=== PATIENT | female | born 1985 ===

== ENCOUNTER 2017-03-19 16:34 | Emergency (ER) | payer MEDICAID ==
[2017-03-19 16:35] VITALS: BMI 42.2
[2017-03-19] MEDS ORDERED: Sodium Chloride 0.9% 1,000 ML IV STA (17:34)
--- NOTE | 2017-03-19 17:37 | ED PDOC ---
HPI: Abdomen Time Seen by Provider: 03/19/17 17:12 Chief Complaint (Nursing): GI Problem Chief Complaint (Provider): R pelvic pain History Per: Patient History/Exam Limitations: no limitations Onset/Duration Of Symptoms: Days (2 weeks) Additional Complaint(s): Pt. with R pelvic pain and cramping. Constant. Also decreased appetite. Today had sore throat, but able to swallow with bodyaches, weakness all over. No chest pain, dyspnea, dizziness, headaches, numbness, tingles. No back pain. No leg or arm pain. No dysuria. No vaginal bleeding. Past Medical History Reviewed: Nursing Documentation, Vital Signs Vital Signs: Last Vital Signs Temp 99.1 F 03/19/17 20:45 Pulse 82 03/19/17 17:01 Resp 18 03/19/17 17:01 BP 127/70 03/19/17 17:01 Pulse Ox 99 03/19/17 19:46 - Surgical History Surgical History: Cholecystectomy, - Family History Family History: States: Unknown Family Hx - Social History Alcohol: None Drugs: Denies - Home Medications Home Medications: Ambulatory Orders Medication Instructions Recorded Ferrous Sulfate [Ferrous Sulfate] 325 mg PO BID 01/26/15 Naproxen [Naprosyn] 500 mg PO BID PRN #15 tablet 05/01/16 Dicyclomine [Bentyl] 20 mg PO BID #20 tab 05/05/16 Docusate Sodium [Dulcolax Stool 100 mg PO DAILY PRN #10 capsule 05/05/16 Softener] Famotidine [Pepcid] 20 mg PO DAILY PRN #6 tab 03/19/17 Ibuprofen [Motrin] 600 mg PO TID 7 Days tab 03/19/17 - Allergies Allergies/Adverse Reactions: Allergies Allergy/AdvReac Type Severity Reaction Status Date / Time No Known Allergies Allergy Verified 09/29/14 14:53 Review of Systems ROS Statement: Except As Marked, All Systems Reviewed And Found Negative Constitutional: Positive for: Chills, Weakness ENT: Positive for: Throat Pain Gastrointestinal: Positive for: Abdominal Pain Neurological: Positive for: Weakness Physical Exam - Reviewed Nursing Documentation Reviewed: Yes Vital Signs Reviewed: Yes - Physical Exam Appears: Positive for: Non-toxic, No Acute Distress Head Exam: Positive for: ATRAUMATIC, NORMAL INSPECTION, NORMOCEPHALIC Skin: Positive for: Normal Color, Warm, DRY Eye Exam: Positive for: EOMI, Normal appearance, PERRL ENT: Positive for: Normal ENT Inspection. Negative for: Nasal Congestion, Pharyngeal Erythema, Tonsillar Exudate Neck: Positive for: Normal, Painless ROM, Supple Cardiovascular/Chest: Positive for: Regular Rate, Rhythm Respiratory: Positive for: CNT, Normal Breath Sounds Gastrointestinal/Abdominal: Positive for: Bowel Sounds, Soft, Tenderness (RLQ). Negative for: Guarding Back: Positive for: Normal Inspection. Negative for: L CVA Tenderness, R CVA Tenderness Extremity: Positive for: Normal ROM. Negative for: Tenderness, Pedal Edema Neurologic/Psych: Positive for: Alert, Oriented - Laboratory Results Result Diagrams: 03/19/17 18:05 03/19/17 18:05 Interpretation Of Abn Labs: 16.8 wbc Urine POC: Negative Urine dip results: Negative for: Leukocyte Esterase, Nitrate - ECG O2 Sat by Pulse Oximetry: 99 - CT Scan/US ct and US Other Rad Studies (CT/US): Read By Radiologist Other Rad Interpretation: ovarian cyst small - Progress ED Course And Treament: 2048: Stable. AAOx3. Pain free. Tolerated PO. Fu with pcp. Disposition - Clinical Impression Clinical Impression: Ovarian cyst, Abdominal pain - Patient ED Disposition Is Patient to be Admitted: No Counseled Patient/Family Regarding: Studies Performed, Diagnosis, Need For Followup, Rx Given - Disposition Referrals: [facility] [Outside] - 03/20/17 Disposition: Routine/Home Disposition Time: 21:50 Condition: STABLE Additional Instructions: Return if not better in 3 days. Prescriptions: Famotidine [Pepcid] 20 mg PO DAILY PRN #6 tab PRN Reason: Pain Ibuprofen [Motrin] 600 mg PO TID 7 Days tab Instructions: Acute Abdominal Pain (ED), Ovarian Cyst (ED) Forms: [employer] ([place])
[2017-03-19 18:08] LABS: BASO # 0.1 K/uL (0.0-0.2); BASO % 0.5 % (0.0-2.0); EOS # 0.1 K/uL (0.0-0.7); EOS % 0.9 % (0.0-4.0); HEMATOCRIT 40.9 % (34.0-47.0); LYMPH # 1.5 K/uL (1.0-4.3); MEAN CELL VOLUME 81.5 fl (81.0-99.0); MEAN CORPUSCULAR HEMOGLOBIN 27.2 pg (27.0-31.0); MEAN CORPUSCULAR HGB CONC 33.4 g/dL (33.0-37.0); MEAN PLATELET VOLUME 9.3 fl (7.2-11.7); MONO # 0.9 K/uL (0.0-0.8); MONO % 5.5 % (0.0-10.0); NEUT # 14.1 K/uL (1.8-7.0); NEUT % 84.1 % (50.0-75.0); PLATELET COUNT 220 K/uL (130-400); RED CELL DISTRIBUTION WIDTH 13.1 % (11.5-14.5); WHITE BLOOD COUNT 16.8 K/uL (4.8-10.8)
[2017-03-19 18:23] LABS: BLOOD UREA NITROGEN 9 mg/dl (7-17); CALCIUM 9.1 mg/dL (8.4-10.2); CARBON DIOXIDE 28 mmol/L (22-30); CHLORIDE 101 mmol/L (98-107); GFR AFRICAN-AMERICAN > 60; GLUCOSE,RANDOM 84 mg/dL (65-105); POTASSIUM 3.9 MMOL/L (3.6-5.0); SODIUM 138 mmol/l (132-148)
[2017-03-19] MEDS ORDERED: Iohexol 240 (50 ml) PO ONE (19:44)
[2017-03-19] MEDS ORDERED: Iohexol 240 (50 ml) ONE (19:50)
[2017-03-19 20:09] LABS: EOSINOPHIL 1 % (0-7); NEUTROPHIL 78 % (42-75); TOTAL CELLS COUNTED 100
[2017-03-19] MEDS ORDERED: Iohexol 300 100 ML IJ ONE (21:28)
[2017-03-19] MEDS ORDERED: Sodium Chloride 0.9% 50 ML IV ONE (21:28)
--- NOTE | 2017-03-19 22:44 | CT ---
EXAM: CT Abdomen and Pelvis With Intravenous Contrast CLINICAL HISTORY: 31 years old, female; Pain; Abdominal pain; Localized; Right lower quadrant (rlq); Prior surgery; Surgery date: 6+ months; Surgery type: Gb removed. 3 c-sections. Tubal ligation; Patient HX: Anemia; Additional info: Abd pain. Sent phy. Doc. TECHNIQUE: Axial computed tomography images of the abdomen and pelvis with intravenous contrast. All CT scans at this facility use one or more dose reduction techniques, viz.: automated exposure control; ma/kV adjustment per patient size (including targeted exams where dose is matched to indication; i.e. head); or iterative reconstruction technique. Coronal and sagittal reformatted images were created and reviewed. CONTRAST: 95 mL of [id number] administered intravenously. COMPARISON: PELVIS/TRANSVAG US 2017-03-19 18:33 FINDINGS: Lower thorax: The bilateral lung bases are clear. ABDOMEN: Liver: No acute findings. Gallbladder and bile ducts: The gallbladder is surgically absent. No significant intra- or extrahepatic biliary ductal dilation. Pancreas: Enhances homogeneously. No ductal dilation. No discrete mass. Spleen: No acute findings. Adrenals: No acute findings. Kidneys and ureters: No acute findings. No hydronephrosis or renal calculi. No discrete solid mass. PELVIS: Bladder: No acute findings. Reproductive: Asymmetric enlargement of the right ovary, consistent with patient's ultrasound examination performed earlier on the same day. Appendix: The appendix is of normal caliber (series 602, image 82; series 601, image 55 and series 3, image 139). ABDOMEN and PELVIS: Stomach and bowel: No obstruction. No mucosal thickening. Peritoneum: No significant fluid collection. No free air. Lymph nodes: No pathologically enlarged lymph nodes. Vasculature: Unremarkable. Bones: No acute fracture. IMPRESSION: No findings to suggest the presence of acute appendicitis, as detailed above.
[2017-03-19 23:17] VITALS: BP 105/60; PULSE 86; RESP 16; O2SAT 100
[2017-03-20 00:01] VITALS: TEMP 100.4
--- NOTE | 2017-03-20 07:20 | US ---
HISTORY: Pelvic pain. Menstrual status: LMP 03/06/2017 COMPARISON: None available. TECHNIQUE: Transabdominal, transvaginal. Real -time technique with 2D, duplex and color Doppler. FINDINGS: UTERUS: Measures 4.4 x 5.7 x 10.1 cm. Normal in size and appearance. No fibroid or other mass lesion seen. ENDOMETRIUM: Measures 7.1 mm in diameter. No ultrasound findings to suggest gestational sac, fluid, debris, mass or polyp or other pathologic process within the endometrium. CERVIX: No cervical abnormality identified. RIGHT OVARY: Measures 1.5 x 2.6 x 3 cm. No solid mass. Normal flow. Dominant cyst/ follicle 9 x 16 x 12 mm. LEFT OVARY: Measures 1.6 x 2.3 x 2.4 cm. No solid mass. Normal flow. Multiple subcentimeter follicles. FREE FLUID: No significant free fluid noted. OTHER FINDINGS: None. IMPRESSION: No significant or acute findings to account for/ related to the clinical presentation. Additional benign and/or incidental findings described above. Concordant results (preliminary interpretation) provided by [facility]. Procedure Completed: 18:46. Preliminary ([facility]) Report: Dictated and Authenticated: 19:48. Final Interpretation: 07:19 March 20, 2017.
== END 2017-03-20 00:05 | disposition home or self-care (01) ==
LOC: H.ER 16:34
DX: N83.201 Unspecified ovarian cyst, right side (principal); D64.9 Anemia, unspecified
CPT/HCPCS: 74177; 76830; 76856; 80048; 81025; 85025; 87804; 96374; 99285; J1885; J7040; Q9966; Q9967

== ENCOUNTER 2018-03-03 11:26 | Emergency (ER) | payer MEDICAID ==
[2018-03-03 11:34] VITALS: BMI 40.2
[2018-03-03 11:35] VITALS: BP 116/72; PULSE 79; RESP 17; TEMP 99; O2SAT 98
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
== END 2018-03-03 12:20 | disposition home or self-care (01) ==
LOC: H.ER 11:26
DX: S16.1XXA Strain of muscle, fascia and tendon at neck level, initial encounter (principal); Y04.0XXA Assault by unarmed brawl or fight, initial encounter; Y92.89 Other specified places as the place of occurrence of the external cause

== ENCOUNTER 2018-04-08 23:11 | Emergency (ER) | payer MEDICAID ==
[2018-04-08 23:11] VITALS: BMI 40.2
[2018-04-08 23:51] VITALS: BP 101/62; PULSE 82; RESP 16; TEMP 98.1; O2SAT 99
--- NOTE | 2018-04-09 00:46 | ED PDOC ---
Upper Extremity Pain/Injury Time Seen by Provider: 04/09/18 00:28 Chief Complaint (Nursing): Upper Extremity Problem/Injury Chief Complaint (Provider): right shoulder pain History Per: Patient History/Exam Limitations: no limitations Onset/Duration Of Symptoms: Days (5) Current Symptoms Are (Timing): Still Present Additional History Per: Patient Additional Complaint(s): 32 y/o female presents for evaluation of right shoulder pain x 5 days. Patient states she usually holds purse on right arm, carries her children, and often wakes up on her right side, but otherwise denies known trauma. States pain worse with movement, and today reports "tingling" sensation radiation down right arm to digits 3-5 of right hand. Denies headache, dizziness, extremity weakness, chest pain, shortness of breath, palpitations. Last dose Ibuprofen taken yesterday. Past Medical History Reviewed: Historical Data, Nursing Documentation, Vital Signs Vital Signs: Last Vital Signs Temp 98.1 F 04/08/18 23:46 Pulse 82 04/08/18 23:46 Resp 16 04/08/18 23:46 BP 101/62 04/08/18 23:46 Pulse Ox 99 04/08/18 23:46 - Medical History PMH: Anemia - Surgical History Surgical History: Cholecystectomy, - Family History Family History: States: Unknown Family Hx - Home Medications Home Medications: Ambulatory Orders Medication Instructions Recorded Ferrous Sulfate 325 mg PO BID 01/26/15 Naproxen [Naprosyn] 500 mg PO BID PRN #15 tablet 05/01/16 Dicyclomine [Bentyl] 20 mg PO BID #20 tab 05/05/16 Docusate Sodium [Dulcolax Stool 100 mg PO DAILY PRN #10 capsule 05/05/16 Softener] Famotidine [Pepcid] 20 mg PO DAILY PRN #6 tab 03/19/17 Ibuprofen [Motrin] 600 mg PO TID 7 Days tab 03/19/17 Naproxen [Naprosyn] 500 mg PO Q12 PRN #20 tablet 04/09/18 - Allergies Allergies/Adverse Reactions: Allergies Allergy/AdvReac Type Severity Reaction Status Date / Time No Known Allergies Allergy Verified 09/29/14 14:53 Review of Systems ROS Statement: Except As Marked, All Systems Reviewed And Found Negative Musculoskeletal: Positive for: Shoulder Pain (right) Physical Exam - Reviewed Nursing Documentation Reviewed: Yes Vital Signs Reviewed: Yes - Physical Exam Appears: Positive for: Well, Non-toxic, No Acute Distress Pulses-Radial (L): 2+ Pulses-Radial (R): 2+ Extremity: Positive for: Normal ROM, Tenderness (anterior aspect right shoulder; no edema, deformity noted. FROM but with tenderness upon flexion/abduction. Hand acquisitions analyst equal bilaterally), Capillary Refill (<2 sec b/l UE). Negative for: Calf Tenderness, Deformity, Swelling Neurologic/Psych: Positive for: Alert, Oriented (x3). Negative for: Motor/Sensory Deficits - ECG O2 Sat by Pulse Oximetry: 99 - Other Rad right shoulder xray X-Ray: Viewed By Me X-Ray Interpretation: no acute findings - Progress ED Course And Treament: -right shoulder xray -Toradol IM Patient educated on findings, arm sling applied Advised RICE Rx Naproxen provided Follow up PMD within 2-3 days Return precautions given Disposition - Clinical Impression Clinical Impression: Shoulder pain - Patient ED Disposition Is Patient to be Admitted: No Counseled Patient/Family Regarding: Studies Performed, Diagnosis, Need For Followup, Rx Given - Disposition Disposition: Routine/Home Disposition Time: 02:00 Condition: IMPROVED Prescriptions: Naproxen [Naprosyn] 500 mg PO Q12 PRN #20 tablet PRN Reason: Pain, Moderate (4-7) Instructions: Shoulder Impingement Forms: [facility] ([place])
--- NOTE | 2018-04-09 09:38 | RAD ---
Date of service: 04/09/2018 PROCEDURE: Radiographs of the Right Shoulder HISTORY: pain with movement COMPARISON: No prior. FINDINGS: BONES: Normal. No fracture. JOINTS: Normal. Glenohumeral and acromioclavicular joints preserved. No osteoarthritis. SOFT TISSUES: Normal. OTHER FINDINGS: None. IMPRESSION: Normal radiographs of the right shoulder.
== END 2018-04-09 03:55 | disposition home or self-care (01) ==
LOC: H.ER 23:11
DX: M25.511 Pain in right shoulder (principal)
CPT/HCPCS: 73030; 81025; 96372; 99285; J1885